=== PATIENT | female | born 1965 | race Caucasian/White ===

== ENCOUNTER 2021-03-02 12:02 | Emergency (ER) | payer OTHER, SELFPAY ==
[2021-03-02 12:25] VITALS: BP 149/103; PULSE 85; RESP 18; TEMP 36.4; O2SAT 97; BMI 43.4
--- NOTE | 2021-03-02 13:02 | ED_ITS ---
HPI - Animal Bite General: Chief Complaint: Animal Bite Stated Complaint: Sent for Rabies shot/[facility] Time Seen by Provider: 03/02/21 12:53 History of Present Illness: HPI narrative: Patient bit by a stray cat on left thumb. This occurred on Thursday. Was seen at the medical clinic today given a tetanus shot prescribed Augmentin was sent here for start of her rabies series. complaint: animal bite Onset (ago): day(s) Animal: cat Description of animal: unknown animal Mechanism: bite Location - Extremities: Left: hand (Thumb area) Associated symptoms: Reports no associated symptoms; Deny chills, fever(s) or headache(s) Review of Systems Const: Denies: fever(s), chills or body aches Eyes: Denies: change in vision or blurry vision ENMT: Denies: throat pain or nasal congestion Card: Denies: chest pain or dyspnea on exertion Resp: Denies: dyspnea, productive cough or non-productive cough GI: Denies: abdominal pain, nausea or vomiting Musc: Denies: extremity pain Skin/Breast: Reports: other (To bite puncture wounds to left thumb base from [place] that occurred on ); Denies: rash Neuro: Denies: headache(s) Psych: Denies: anxiety or depression Luisito/Lymph: Denies: easy bruising PFSH ED PFSH: Social History (Updated 03/02/21 @ 10:31 by Tatum Perez LPN) Smoking and tobacco status: never smoked Alcohol intake: never Female Reproductive History: Spontaneous abortions: No Physical Exam Const: COMMON NORMALS: no acute distress Psych: COMMON NORMALS: mental status grossly normal Skin: OTHER: 2 puncture wounds to base of left thumb without redness or swelling noted Course Vital Signs: Vital signs: Vital Signs Temperature 97.6 F 03/02/21 12:25 Pulse Rate 85 03/02/21 12:25 Respiratory Rate 18 03/02/21 12:25 Blood Pressure 149/103 03/02/21 12:25 Pulse Oximetry 97 03/02/21 12:25 MDM - Animal Bite MDM Narrative: Medical decision making narrative: Patient informed us. 30 minutes after initial visit for me that she contacted the prior owners of the house who know the cats that are there and said they have all been vaccinated up-to-date on the rabies vaccine and there is showing no signs of rabies and they have a catcher position so patient declines rabies vaccine and immunoglobulin and will follow up at [facility] if needed. Discharge Plan Discharge Patient Disposition: Home Clinical Impression: Cat bite Qualifiers: Encounter type: subsequent encounter Qualified Code(s): W55.01XD - Bitten by cat, subsequent encounter Condition: Stable Prescriptions: No Action amoxicillin-pot clavulanate 875-125 mg tablet 1 tab PO BID 10 Days Qty: 20 RF: 0 Discharge Orders: Discharge ED (Routine); Ordered 03/02/21 Ordered By: Oral Clarke Discharge Diet: Usual diet Discharge Activity: Resume usual activity Patient Instructions: Animal Bite (ED) Activity Restrictions/Additional Instructions: Take medicine as directed. Follow-up your primary care provider as needed. Coding Level of Care Code ED Homicide [employer] for [employer] Exam Expanded Problem Focused
== END 2021-03-02 14:04 | disposition home or self-care (01) ==
PROVIDERS: Emergency Provider Nurse Practitioner Family
DX: S61.052A Open bite of left thumb without damage to nail, initial encounter (principal); W55.01XA Bitten by cat, initial encounter; Z20.3 Contact with and (suspected) exposure to rabies
CPT/HCPCS: 99281